=== PATIENT | female | born 1935 | race Caucasian/White ===

== ENCOUNTER 2016-05-13 14:34 | Outpatient (CLI) | payer OTHER ==
[~2016-05-13 14:34] MED LIST: ALENDRONATE SOD35 MG PO; ALEVE220 MG PO; ASPIRIN ADULT L81 M1 PO; MAXIDE PO; MULTIPLE VITAMIN PO; SYNTHROID150 MCG PO; TUMS500 MG; VITAMIN D-31000 UNIT PO
--- NOTE | 2016-05-13 17:02 | DIAGNOSTIC IMAGING REPORT ---
PROCEDURE: XR SCOLIOSIS STUDY INDICATION: DEGENERATIVE DISEASE TECHNIQUE: Four views of the thoracic and lumbar spine. COMPARISON: Lumbar spine films dated 05/14/2015 FINDINGS: There is a new compression deformity at L3 which represents less than 20% of the vertebral body height. There is a mild dextroscoliosis lumbar spine (8 degrees). There are moderate to marked degenerative changes of the lower lumbar spine with a grade 1 (8 mm) degenerative listhesis of L4-L5 associated marked disc-space narrowing. There is no evidence of acute process or fracture. There are multiple surgical clips in the right abdomen. IMPRESSION: 1. Mild dextroscoliosis of the lumbar spine (8 degrees). 2. Moderate to marked degenerative changes of the lower lumbar spine with grade 1 (8 mm) degenerative listhesis of L4-L5 (suggests significant spinal stenosis). 3.There is a new compression deformity at L3 which represents less than 20% of the vertebral body height.
== END 2016-05-13 23:00 ==
LOC: XR SRH 14:34
DX: M41.86 Other forms of scoliosis, lumbar region (principal); M51.36 Other intervertebral disc degeneration, lumbar region

== ENCOUNTER 2016-08-07 10:15 | Outpatient (CLI) | payer OTHER ==
--- NOTE | 2016-08-07 11:39 | DIAGNOSTIC IMAGING REPORT ---
PROCEDURE: DEXA BONE DENSITY STUDY CLINICAL INDICATION: OSTEOPORISIS COMPARISON: DEXA dated 12/13/2014 FINDINGS: LUMBAR SPINE: Bone mineral density 0.964 g/cm2, T score -0.8 normal which represents a 2.6% improvement from the previous study LEFT HIP: Bone mineral density 0.816 g/cm2, T score -1.0 normal which represents a 6.1% improvement from the previous study LEFT FEMORAL NECK: Bone mineral density 0.617 g/cm2, T score -2.1 osteopenia which represents an 8.4% improvement from the previous study FRACTURE RISK CALCULATION ( when applicable): 10-year fracture risk of a major osteoporotic fracture and of a hip fracture not reported because the patient is being treated for osteoporosis. (T score greater or equal to -1.0 to: NORMAL) (T score from -1.1 to -2.4: OSTEOPENIA) (T score ess than or equal to -2.5: OSTEOPOROSIS) IMPRESSION: 1. Normal spine hip. Femoral neck osteopenia with an 8.4% improvement from the previous study
== END 2016-08-07 23:00 ==
LOC: XR SRH 10:15
DX: M85.88 Other specified disorders of bone density and structure, other site (principal)